=== PATIENT | female | born 1960 | race Caucasian/White ===

== ENCOUNTER 2019-11-18 08:17 | Outpatient (REF) | payer BC, SELFPAY ==
[2019-11-18 09:04] LABS: Basophils % 0.6 %; Eosinophils # 0.1 10^3/uL (0.0-0.8); Eosinophils % 1.9 %; Hemoglobin 13.2 g/dL (11.5-15.3); Lymphocytes # 1.7 10^3/uL (0.8-4.8); Lymphocytes % 23.9 %; Mean Corpuscular HGB Conc 31.4 g/dL (30.0-36.0); Mean Corpuscular Hemoglobin 28.8 pg (28.0-34.0); Mean Corpuscular Volume 91.5 fL (81-99); Mean Platelet Volume 11.1 fL (7.4-10.4); Monocytes # 0.4 10^3/uL (0.2-0.9); Monocytes % 5.6 %; Neutrophils # 4.8 10^3/uL (1.8-7.7); Neutrophils % 67.9 %; Nucleated Red Blood Cells % 0 %; Platelet Count 253 10^3/cmm (130-400); Red Blood Count 4.59 10^6/uL (4.1-5.3); Red Cell Distribution Width 12.6 % (12.1-15.1)
[2019-11-18 13:25] LABS: Alanine Aminotransferase 10 U/L (0-33); Albumin Level 4.2 g/dL (3.5-5.2); Alkaline Phosphatase 84 IU/L (35-105); Anion Gap 12.8 (5-19); Aspartate Amino Transferase 18 U/L (0-32); Blood Urea Nitrogen 17 mg/dL (6-20); Calcium 9.7 mg/dL (8.5-10.5); Carbon Dioxide 30 mmol/L (22-29); Chloride 102 mmol/L (98-107); Chol HDL Ratio 3.15 mg/dL (0.0-4.40); Cholesterol 195 mg/dL (0-200); Globulin 2.8 g/dL (1.3-4.6); Glomerular Filtration Rate 85.9 mL/min (90-130); Glucose 100 mg/dL (65-115); HDL Cholesterol 62 mg/dL (60-100); LDL Cholesterol Calculated 108 mg/dL (50-129); LDL HDL Ratio 1.74 RATIO (0.00-3.22); Potassium 3.8 mmol/L (3.5-5.1); Sodium 141 mmol/L (136-145); Thyroid Stimulating Hormone 0.24 uIU/mL (0.27-4.20); Total Bilirubin 0.5 mg/dL (0.15-1.2); Triglycerides 125 mg/dL (0-150)
[2019-11-18 23:40] LABS: 25 Hydroxy Vitamin D 30 ng/mL (30-100)
[2019-11-19 02:38] LABS: Estmated Average Glucose 117; Hemoglobin A1C 5.7 % (4.0-6.0)
== END 2019-11-18 08:18 | disposition home or self-care (01) ==
LOC: LAB 08:17
PROVIDERS: Family Provider Nurse Practitioner; PCP Nurse Practitioner; Visit Provider Dermatology
DX: Z01.89 Encounter for other specified special examinations (principal)
CPT/HCPCS: 80053; 80061; 82306; 83036; 84443; 85025

== ENCOUNTER → 2020-04-09 08:47 | Outpatient (BNVA) | payer BC, SELFPAY | PROVIDERS: Family Provider Nurse Practitioner; PCP Nurse Practitioner; Visit Provider Nurse Practitioner | DX: I10 Essential (primary) hypertension (principal); F41.9 Anxiety disorder, unspecified; F32.9 Major depressive disorder, single episode, unspecified | CPT/HCPCS: 80053; 80061; 84443; 84484 ==

== ENCOUNTER → 2021-04-02 08:57 | Outpatient (BNVA) | payer SELFPAY | PROVIDERS: Family Provider Nurse Practitioner; PCP Nurse Practitioner; Visit Provider Dermatology | DX: Z01.89 Encounter for other specified special examinations (principal) ==

== ENCOUNTER 2021-06-10 09:10 | Outpatient (CLI) | payer OTHER, SELFPAY ==
--- NOTE | 2021-06-10 09:30 | USCV_ITS ---
Darrian Gretchen Age: 60 Gender: F : 1960 Exam Date: 06/10/2021 09:25 Ordering Phys: Regina Holley Technologist: AUGUST [place]am [place] [facility] [place]: OTHER SPECIFIED SYMPTOMS AND SIGNS Risk Factors: Previous Vascular Surgery: None Right Brachial BP: / Left Brachial BP: / Right Left Velocity (cm/s) Spectral Plaque Velocity (cm/s) Spectral Plaque Syst/Diast Broadening Syst/Diast Broadening 78.80/ 28.10 Prox CCA 84.90 / 30.10 67.50/ 26.30 Mid CCA 65.80 / 22.10 71.70/ 26.50 Distal CCA 85.40 / 35.00 71.70/ 32.00 Prox ICA 85.40 / 36.70 75.00/ 35.30 Mid ICA 110.40/ 47.30 180.10/63.10 Distal ICA 154.30/ 52.90 94.80 ECA 71.80 1.11 ICA/CCA 1.68 Antegrade Vertebral Antegrade 39.40/ 16.40 cm/s 91.70/ 32.40 cm/s Tri Subclavian Bi 61.10 91.50 FINDINGS Comparison: none available. No significant elevation of systolic or diastolic velocities. Minimal bilateral, carotid atherosclerosis with no elevation of velocity. Aantegrade vertebral arteries. CONCLUSIONS Bilateral ICA stenosis less than 50%. Dr. Denise Meade DO (Electronically Signed) Final Date: 10 June 2021 11:03 S
== END 2021-06-10 09:11 | disposition home or self-care (01) ==
PROVIDERS: PCP Nurse Practitioner; Visit Provider Nurse Practitioner
DX: R09.89 Other specified symptoms and signs involving the circulatory and respiratory systems (principal); I65.23 Occlusion and stenosis of bilateral carotid arteries
CPT/HCPCS: 93880

== ENCOUNTER 2021-06-11 13:41 | Outpatient (CLI) | payer OTHER, SELFPAY ==
--- NOTE | 2021-06-11 14:00 | MM_ITS ---
WS: [id number] BILATERAL SCREENING DIGITAL MAMMOGRAM WITH CAD HISTORY: Z12.39 - Encounter for other screening for malignant neoplasm. COMPARISON: 07/29/2018 and 2015 Bilateral CC and MLO views submitted. Computer aided detection analyzed. Breast composition: The breasts are heterogeneously dense, which may obscure small masses. No suspici ous masses, microcalcifications or architectural distortion. MM/[place] [id number] IMPRESSION: BI-RADS: 1-Negative FOLLOW UP: 1 Year Follow-up
== END 2021-06-11 13:42 | disposition home or self-care (01) ==
LOC: RADSHAW 13:43
PROVIDERS: PCP Nurse Practitioner; Visit Provider Nurse Practitioner
DX: Z12.31 Encounter for screening mammogram for malignant neoplasm of breast (principal)
CPT/HCPCS: 77067

== ENCOUNTER → 2021-07-02 09:32 | Outpatient (BNVA) | payer SELFPAY | PROVIDERS: PCP Nurse Practitioner; Visit Provider Nurse Practitioner | DX: E03.8 Other specified hypothyroidism (principal) ==

== ENCOUNTER → 2022-03-25 08:32 | Outpatient (BNVA) | payer SELFPAY | PROVIDERS: PCP Nurse Practitioner; Referring Provider Nurse Practitioner; Visit Provider Dermatology | DX: Z01.89 Encounter for other specified special examinations (principal); Z71.9 Counseling, unspecified ==

== ENCOUNTER 2022-06-18 08:15 | Outpatient (CLI) | payer OTHER, SELFPAY ==
--- NOTE | 2022-06-18 08:28 | MM_ITS ---
WS: [id number] Bilateral screening 3D tomosynthesis digital mammogram, 06/18/2022 Clinical Data: SCREENING Comparison: 06/11/2021, 07/29/2018, 09/12/2016, 05/15/2015, 05/02/2015, 12/01/2010, 07/11/2029, 06/22/2027, . Findings: The breast parenchymal pattern shows heterogeneous density. No spiculated masses or clustered calcifi cations are seen. There are no secondary signs of carcinoma. There are mole markers on both breasts. MM/[place] [id number] Impression: 1. Negative bilateral mammogram unchanged. 2. Recommend annual screening mammograms. BIRADS: 1-Negative FOLLOW UP: 1 Year Follow-up The CAD cashier or checker stock clerk was used.
== END 2022-06-18 08:16 | disposition home or self-care (01) ==
LOC: RAD 08:15
PROVIDERS: PCP Nurse Practitioner; Visit Provider Nurse Practitioner
DX: Z12.31 Encounter for screening mammogram for malignant neoplasm of breast (principal)
CPT/HCPCS: 77063; 77067

== ENCOUNTER → 2023-03-24 09:44 | Outpatient (BNVA) | payer SELFPAY | PROVIDERS: PCP Nurse Practitioner; Visit Provider Dermatology | DX: Z01.89 Encounter for other specified special examinations (principal) ==

== ENCOUNTER 2023-06-19 11:46 | Outpatient (CLI) | payer OTHER, SELFPAY ==
--- NOTE | 2023-06-19 11:59 | MM_ITS ---
WS: [id number] BILATERAL 3D TOMOSYNTHESIS DIGITAL SCREENING MAMMOGRAPHY WITH CAD CLINICAL INFORMATION: Z12.31 - Encounter for screening mammogram for malignant ... HISTORY: Screening mammogram. No current complaints. COMPARISON: 2021 TECHNIQUE: Bilateral CC and MLO views. FINDINGS: The breasts are composed of heterogeneous fibroglandular density tissue, which can limit the detectio n of small underlying mass lesions. No suspicious mass, asymmetry, calcifications, or architectural d istortion. No evidence of malignancy. Incidental punctate calcifications. IMPRESSION: MM/[place] [id number] BI-RADS: 2-Benign FOLLOW UP: 1 Year Follow-up Recommend return to annual screening mammography.
== END 2023-06-19 11:47 | disposition home or self-care (01) ==
LOC: RAD 11:47
PROVIDERS: PCP Nurse Practitioner; Visit Provider Nurse Practitioner
DX: Z12.31 Encounter for screening mammogram for malignant neoplasm of breast (principal)
CPT/HCPCS: 77063; 77067

== ENCOUNTER 2023-07-01 12:15 | Outpatient (CLI) | payer OTHER, SELFPAY | END 2023-07-01 12:16 | disposition home or self-care (01) | LOC: SLEEP 07-02 09:38 | PROVIDERS: PCP Nurse Practitioner; Visit Provider Nurse Practitioner | DX: G47.10 Hypersomnia, unspecified (principal); R06.83 Snoring | CPT/HCPCS: G0399 ==

== ENCOUNTER → 2023-08-26 11:48 | Outpatient (BNVA) | payer OTHER, SELFPAY | PROVIDERS: PCP Nurse Practitioner; Visit Provider Nurse Practitioner | DX: E03.8 Other specified hypothyroidism (principal) | CPT/HCPCS: 84439; 84443; 84481 ==

== ENCOUNTER → 2023-09-22 08:06 | Outpatient (BNVA) | payer SELFPAY | PROVIDERS: PCP Nurse Practitioner; Visit Provider Dermatology | DX: I10 Essential (primary) hypertension (principal); E03.8 Other specified hypothyroidism; F41.9 Anxiety disorder, unspecified; F32.9 Major depressive disorder, single episode, unspecified; Z01.89 Encounter for other specified special examinations | CPT/HCPCS: 85025 ==

== ENCOUNTER 2024-04-27 08:00 | Outpatient (CLI) | payer OTHER, SELFPAY ==
--- NOTE | 2024-04-27 08:00 | USCV_ITS ---
Darrian Gretchen Age: 63 Gender: F : 1960 Exam Date: 04/27/2024 08:17 Ordering Phys: Regina Holley Technologist: Exam Location[place] [facility] [place] Indication: rt distal ica stenosis Risk Factors: Previous Vascular Surgery: Right Brachial BP: / Left Brachial BP: / Right Left Velocity (cm/s) Spectral Plaque Velocity (cm/s) Spectral Plaque Syst/Diast Broadening Syst/Diast Broadening 71.00/ 25.00 Prox CCA 82.00 / 31.00 76.00/ 34.00 Mid CCA 74.00 / 29.00 74.00/ 32.00 Distal CCA 60.00 / 22.00 52.00/ 21.00 Prox ICA 57.00 / 25.00 64.00/ 31.00 Mod Mid ICA 98.00 / 47.00 233.00/73.00 PST Hetro Distal ICA 105.00/ 40.00 120.00 ECA 60.00 3.10 ICA/CCA 1.70 Antegrade Vertebral Antegrade 33.00/ 13.00 cm/s 55.00/ 20.00 cm/s Bi Subclavian Bi 129.0 101.0 0 0 FINDINGS significant stenosis distal rt ica increased from previous exam CONCLUSIONS Right DISTAL ICA stenosis approximately 70% new from previous.. Recommend CTA head and neck Right ICA stenosis <50%. Moderate atheromatous plaque right carotid bulb/ICA. Left ICA stenosis <50%. Moderate atheromatous plaque left carotid bulb/ICA. Mild atheromatous plaque left carotid bulb/ICA. Normal antegrade Doppler flow noted in the right vertebral artery. Normal antegrade Doppler flow noted in the left vertebral artery. David Coreas MD (Electronically Signed) Final Date: 27 April 2024 15:46 Amended: 27 April 2024 15:48 C
== END 2024-04-27 08:01 | disposition home or self-care (01) ==
PROVIDERS: PCP Nurse Practitioner; Visit Provider Nurse Practitioner
DX: R09.89 Other specified symptoms and signs involving the circulatory and respiratory systems (principal); I65.21 Occlusion and stenosis of right carotid artery
CPT/HCPCS: 93880

== ENCOUNTER 2024-05-23 11:46 | Outpatient (CLI) | payer OTHER, SELFPAY ==
--- NOTE | 2024-05-23 12:00 | CT_ITS ---
WS: [id number] CT ANGIOGRAM CEREBRAL AND CAROTID ARTERIES HISTORY: R93.89 - Abnormal findings on diagnostic imaging of other... TECHNIQUE: CT angiogram is performed of the carotid and cerebral arteries. During arterial injection imaging is obtained from the skull vertex to the aortic arch in 1.25 mm imaging. Coronal and sagittal reformats are submitted. Additional multi planar reformats of the carotid and cerebral arteries are submitted, MIP imaging also reviewed. NASCET criteria utilized. [facility] CT [facility] at least one of these dose optimization techniques: automated exposure control; mA and/or kV adjust ment per patient size (includes targeted exams where dose is matched to clinical indication); or iter ative reconstruction. CONTRAST: Omnipaque 350; 100 mL IV. DLP: 1205.04 mGy.cm COMPARISON: Carotid ultrasound 04/27/[address]: No acute hemorrhage. Mild bifrontal lobe atrophy has progressed since 2008. Mild small vessel ischemic disease. No infarct or hemorrhage. Air noted within the. RIGHT globe. Carotid Angiogram: Right carotid: Common carotid artery: Arises normally from the innominate artery. No significant plaque or stenosis. Internal carotid artery: No significant stenosis in the proximal ICA. In the distal cervical ICA ther e is a sharp bend within the carotid artery resulting in stenosis estimated near 60 to 70%. This shyla esponds to the finding also seen on the recent carotid ultrasound. External carotid artery: Patent. Left carotid: Common carotid artery: Arises normally from the aorta. No significant plaque or stenosis. Internal carotid artery: No plaque or stenosis. External carotid artery: Patent. Right vertebral artery: Patent and slightly smaller caliber than the LEFT. Left vertebral artery: Dominant. Subclavian arteries: No stenosis or significant abnormality. Upper thorax: Biapical pulmonary fibrosis. Thyroid gland: Small caliber. Thyroid is very difficult to visualize. Osseous structures: Degenerative disc disease at C5-6 and C6-7. CEREBRAL ANGIOGRAM: Intracranial vertebral arteries: Patent, LEFT is dominant. Basilar artery: No significant stenosis or occlusion. No aneurysm. Intracranial Internal carotid arteries: Demonstrates no significant stenosis or plaque. Middle cerebral arteries: Normal. Anterior cerebral arteries and ACOM: Normal. Posterior cerebral arteries and PCOM's: Persistent circulation on the RIGHT. Small caliber but patent LEFT posterior communicating artery. Dural venous sinuses are normally enhancing. Mastoid air cells: Normal. Paranasal sinuses: Normal. Calvarium: Normal. CT/CT angio headneck* [id number] IMPRESSION: 1. There is a sharp band in the distal RIGHT cervical ICA and may be a small w eb resulting in stenosis of 60 to 70%. Very minimal calcified plaque. 2. No occlusions or aneurysms in the [place]. 3. Air in the RIGHT globe. This is probably not an acute finding but is new si nce 2009.
[2024-05-23 12:50] LABS: Blood Urea Nitrogen 18 mg/dL (8-23); Glomerular Filtration Rate 72.7 mL/min (90-130)
[2024-05-23] MEDS: iohexol 350 mg/mL 500 mL Btl (per mL) IV (13:13)
== END 2024-05-23 11:47 | disposition home or self-care (01) ==
LOC: RAD 11:47
PROVIDERS: PCP Nurse Practitioner; Visit Provider Nurse Practitioner
DX: R93.89 Abnormal findings on diagnostic imaging of other specified body structures (principal); I65.21 Occlusion and stenosis of right carotid artery; J84.10 Pulmonary fibrosis, unspecified; M50.322 Other cervical disc degeneration at C5-C6 level; M50.223 Other cervical disc displacement at C6-C7 level
CPT/HCPCS: 70496; 70498; 82565; 84520; Q9967

== ENCOUNTER 2024-06-19 16:17 | Emergency (ER) | payer OTHER, SELFPAY ==
[2024-06-19 16:18] VITALS: BP 150/83; PULSE 90; RESP 16; O2SAT 96; BMI 27.7
--- NOTE | 2024-06-19 16:25 | XRR_ITS ---
PROCEDURE INFORMATION: Exam: XR Chest Exam date and time: 06/19/2024 4:36 PM Age: 63 years old Clinical indication: Patient HX: Cough x 3 days TECHNIQUE: Imaging protocol: Radiologic exam of the chest. Views: 1 view. COMPARISON: CT angio headneck* [id number] 05/23/2024 12:58 PM FINDINGS: Lungs: Unremarkable. No consolidation. Pleural spaces: Unremarkable. No pleural effusion. No pneumothorax. Heart/Mediastinum: Unremarkable. No cardiomegaly. Bones/joints: Unremarkable. XR/XR chest 1V portable [id number] IMPRESSION: No acute findings.
[2024-06-19] MEDS: guaiFENesin-codeine UDC 10 mL PO ×3 (16:55→18:55)
[2024-06-19 17:00] VITALS: BP 138/85; PULSE 79; RESP 17; O2SAT 97
--- NOTE | 2024-06-19 17:10 | ED_ITS ---
HPI - URI/Sore Throat General: Chief Complaint: Upper Respiratory Infection Stated Complaint: cant stop coughing Time Seen by Provider: 06/19/24 16:24 History of Present Illness: 63-year-old female who presents the [facility] room with a cough. She says she has been having coughing fits that are so bad it makes her throw up. This started about at which point she had gone to an urgent care and was started on a dexamethasone taper. Cough is continued to worsen. She says she has been through 2 bags cough drops with no improvement. Related Data Home Medications Medication Instructions Recorded Confirmed aspirin 81 mg tablet,delayed 81 mg PO DAILY 04/16/23 03/24/24 release (Adult Low Dose Aspirin) Previous Rx's Medication Instructions Recorded estradiol 0.01% (0.1 mg/gram) 1 gm vaginal .TID WEEK #42.5 grams 11/08/19 vaginal cream albuterol sulfate 90 mcg/actuation 2 inh inhalation QID PRN shortness 01/01/22 aerosol inhaler (Proventil HFA) of breath or wheezing #8.5 grams fluticasone propionate 110 1 puff inhalation Q12H #12 grams 01/01/22 mcg/actuation HFA aerosol inhaler (Flovent HFA) doxepin 50 mg capsule 50 mg PO BID PRN anxiety #180 caps 03/24/24 thyroid (pork) 90 mg tablet 90 mg PO DAILY #90 tabs 03/24/24 (Willis Thyroid) venlafaxine 75 mg capsule,extended 75 mg PO QDAY #90 caps 03/24/24 release 24 hr lisinopril 5 mg tablet 5 mg PO DAILY #90 tabs 05/24/24 rosuvastatin 20 mg tablet 20 mg PO DAILY #90 tabs 05/24/24 albuterol sulfate 90 mcg/actuation 2 inh inhalation Q4H PRN shortness 06/19/24 aerosol inhaler of breath or wheezing #6.7 grams azithromycin 250 mg tablet See Rx Instructions PO .COMPLEX #6 06/19/24 (Zithromax Z-Rocky) tabs benzonatate 200 mg capsule 200 mg PO TID PRN cough #30 caps 06/19/24 codeine 10 mg-guaifenesin 100 mg/5 5 ml PO Q6H PRN cough #120 mL 09/08/24 mL oral liquid Allergies Allergy/AdvReac Type Severity Reaction Status Date / Time No Known Allergies Allergy Verified 03/24/24 16:12 Review of Systems Narrative: Constitutional symptoms: Negative except as documented in HPI. Skin symptoms: Negative except as documented in HPI. Eye symptoms: Negative except as documented in HPI. ENMT symptoms: Negative except as documented in HPI. Respiratory symptoms: Negative except as documented in HPI. Cardiovascular symptoms: Negative except as documented in HPI. Gastrointestinal symptoms: Negative except as documented in HPI. Genitourinary symptoms: Negative except as documented in HPI. Musculoskeletal symptoms: Negative except as documented in HPI. Neurologic symptoms: Negative except as documented in HPI. Psychiatric symptoms: Negative except as documented in HPI. Endocrine symptoms: Negative except as documented in HPI. PFSH ED PFSH: Medical History Adult onset hypothyroidism Anxiety and depression Mixed hyperlipidemia Atrophic vaginitis Surgical History History of colonoscopy Family History Grandfather Cancer Prostate Family/Other Heart disease Father, Grandmother, Uncle Hyperlipidemia Social History Smoking and tobacco/nicotine status: never used tobacco/nicotine Second hand smoke exposure: No Alcohol intake: never Substance/Drug Use: never Adopted: No Caregiver/support person: No Lives independently: Yes Household members: spouse Housing: House Marital status: Number of children: 2 service: No Current occupational status: unemployed Pets and animals: No Do you think of yourself as: Straight/Heterosexual Current gender identity: Female Physical Exam Narrative: EXAM NARRATIVE: General: Alert, no acute distress. Skin: Warm, dry. Head: Normocephalic, atraumatic. Neck: Supple, trachea midline. Eye: Extraocular movements are intact. Ears, nose, mouth and throat: mucosa moist. Cardiovascular: Regular, Normal peripheral perfusion. Respiratory: Lungs are clear to auscultation, respirations are non-labored, breath sounds are equal, Symmetrical chest wall expansion. Frequent hoarse cough Gastrointestinal: Soft, Nontender, Non distended Musculoskeletal: Normal ROM, no deformity. Neurological: Alert and oriented, No focal neurological deficit observed. Psychiatric: Cooperative, appropriate mood & affect. Course Vital Signs: Vital signs: Vital Signs Pulse Rate 79 06/19/24 17:00 Respiratory Rate 17 06/19/24 17:00 Blood Pressure 138/85 06/19/24 17:00 Pulse Oximetry 97 06/19/24 17:00 Oxygen Delivery Me thod Room Air 06/19/24 17:00 MDM - URI/Sore Throat Medical Decision Making Medical decision making: Differential diagnosis including but not limited to and based on the above HPI, review of systems and physical exam: Likely a viral upper respiratory infection/bronchitis. COVID was ordered and a chest x-ray. Orders placed to evaluate differential diagnosis based on the above differential, HPI and physical exam Chest x-ray: No acute process. No infiltrate. No pneumothorax. This was reviewed and interpreted by myself the ER physician. Lab Review: Laboratory results were reviewed and interpreted by myself the emergency room physician. COVID flu and RSV are negative. I reviewed the patient's medical record. Reexamination: Patient remained stable. No increased work of breathing. No altered mental status. No focal motor deficits. Cough has improved some with codeine. Assessment and plan: Upper respiratory infection Bronchitis ?IM Decadron and p.o. codeine. - Discharged home - Discussed findings and plan with patient. Answered any questions. - All laboratory values were reviewed and interpreted personally by myself, the ER physician - All imaging was reviewed and interpreted personally by myself, the ER physician. - Evaluation and treatment of this problem were appropriate in the emergency setting Lab Data Radiology Impressions Chest X-Ray 06/19/24 16:25 IMPRESSION: No acute findings. Laboratory Results Coronavirus (PCR) Negative (Negative) 06/19/24 17:00 Influenza A (PCR) Negative (Negative) 06/19/24 17:00 Influenza Type B (PCR) Negative (Negative) 06/19/24 17:00 RSV (PCR) Negative (Negative) 06/19/24 17:00 All radiology interpretation(s) finalized by discharge Discharge Plan Discharge Patient Disposition: Home Clinical Impression: Upper respiratory infection, Bronchitis Condition: Stable Prescriptions: New codeine-guaifenesin 10-100 mg/5 mL liquid 5 ml PO Q6H PRN (Reason: cough) Qty: 120 0RF Zithromax Z-Rocky 250 mg tablet See Rx Instructions .ROUTE .COMPLEX Qty: 6 0RF Rx Instructions: For 250 mg dose pack: take 500 mg today (day 1), then 250 mg for 4 days (days 2-5) benzonatate 200 mg capsule 200 mg PO TID PRN (Reason: cough) Qty: 30 0RF albuterol sulfate 90 mcg/actuation HFA aerosol inhaler 2 inh inhalation Q4H PRN (Reason: shortness of breath or wheezing) Qty: 6.7 0RF Rx Instructions: Please provide patient with a spacer No Action estradiol 0.01 % (0.1 mg/gram) cream 1 gm VAGINAL .TID WEEK Qty: 42.5 5RF Rx Instructions: 340B aspirin [Adult Low Dose Aspirin] 81 mg tablet,delayed release (DR/EC) 81 mg PO DAILY thyroid (pork) [Willis Thyroid] 90 mg tablet 90 mg PO DAILY Qty: 90 1RF venlafaxine 75 mg capsule,extended release 24hr 75 mg PO QDAY Qty: 90 1RF doxepin 50 mg capsule 50 mg PO BID PRN (Reason: anxiety) Qty: 180 1RF Flovent HFA 110 mcg/actuation HFA aerosol inhaler 1 puff inhalation Q12H Qty: 12 0RF albuterol sulfate [Proventil HFA] 90 mcg/actuation HFA aerosol inhaler 2 inh inhalation QID PRN (Reason: shortness of breath or wheezing) Qty: 8.5 0RF rosuvastatin 20 mg tablet 20 mg PO DAILY Qty: 90 1RF lisinopril 5 mg tablet 5 mg PO DAILY Qty: 90 0RF Discharge Orders: Discharge ED (Routine); Ordered 06/19/24 Ordered By: Rocío Rucker Referrals: Regina Holley, [facility] [Primary Care Provider] - Discharge Diet: Usual diet Discharge Activity: Increase activity as tolerated Patient Instructions: Acute Bronchitis (ED) Activity Restrictions/Additional Instructions: Thank you for choosing [facility] for your healthcare needs today. Please realize this is an emergency room and that we are providing you with a medical screening exam and this may not be complete and all inclusive of all the testing and or work up that you may need to determine your ailment or severity of your illness. You have been screened and evaluated and felt safe for discharge. Health conditions do change or evolve sometimes and as such it is important that you follow up with your Primary Doctor to be re checked, 3-5 days is a general good time frame for follow up. You are always welcome to return to the ED for re assessment if your symptoms are worsening or you have new concerns Coding Level of Care Code ED Servicenow Administrator Developer for Yari Soni
[2024-06-19 17:46] LABS: Covid PCR NEGATIVE (Negative); Influenza A NEGATIVE (Negative); Influenza B NEGATIVE (Negative); Respiratory Syncytial Virus Ce NEGATIVE (Negative)
[2024-06-19] MEDS: dexamethasone 10 mg/mL INJ IM (17:49)
[2024-06-19 18:55] VITALS: BP 166/93; PULSE 70; RESP 16; O2SAT 98
== END 2024-06-19 18:55 | disposition home or self-care (01) ==
PROVIDERS: Emergency Provider Emergency Medicine; PCP Nurse Practitioner
DX: J06.9 Acute upper respiratory infection, unspecified (principal); J40 Bronchitis, not specified as acute or chronic; Z79.82 Long term (current) use of aspirin; E78.2 Mixed hyperlipidemia
CPT/HCPCS: 0241U; 71045; 96372; 99284; J1100

== ENCOUNTER 2024-06-21 08:55 | Outpatient (CLI) | payer SELFPAY ==
[2024-06-21 10:26] LABS: 25 Hydroxy Vitamin D 51 ng/mL (30-100); Thyroid Stimulating Hormone 0.03 uIU/mL (0.27-4.20)
== END 2024-06-21 08:56 | disposition home or self-care (01) ==
LOC: LAB 08:57
PROVIDERS: PCP Nurse Practitioner; Visit Provider Dermatology
DX: Z01.89 Encounter for other specified special examinations (principal)

== ENCOUNTER 2024-09-20 07:44 | Outpatient (CLI) | payer SELFPAY ==
[2024-09-20 09:00] LABS: Estmated Average Glucose 103; Hemoglobin A1C 5.2 % (4.0-6.0)
[2024-09-20 09:23] LABS: 25 Hydroxy Vitamin D 39 ng/mL (30-100); Alanine Aminotransferase 14 U/L (0-33); Alkaline Phosphatase 94 U/L (35-105); Aspartate Amino Transferase 20 U/L (0-32); Blood Urea Nitrogen 18 mg/dL (8-23); Calcium 9.2 mg/dL (8.5-10.5); Carbon Dioxide 26 mmol/L (22-29); Chloride 106 mmol/L (98-107); Chol HDL Ratio 2.69 mg/dL (0.0-4.40); Cholesterol 164 mg/dL (0-200); Globulin 2.5 g/dL (1.3-4.6); Glomerular Filtration Rate 84.8 mL/min (90-130); Glucose 102 mg/dL (65-115); HDL Cholesterol 61 mg/dL (60-100); LDL Cholesterol Calculated 86 mg/dL (50-129); LDL HDL Ratio 1.41 RATIO (0.00-3.22); Osmolality Calculated 294 mOsm/kg (285-295); Sodium 141 mmol/L (136-145); Thyroid Stimulating Hormone 0.65 uIU/mL (0.27-4.20); Total Bilirubin 0.2 mg/dL (0.15-1.2); Total Protein 6.5 g/dL (6.6-8.7); Triglycerides 84 mg/dL (0-150)
[2024-09-20 14:32] LABS: HF Add Manual Diff No
[2024-09-20 14:39] LABS: Basophils # 0.1 10^3/uL (0.0-0.1); Basophils % 0.7 %; Eosinophils # 0.2 10^3/uL (0.0-0.8); Eosinophils % 2.4 %; Hematocrit 35.9 % (36-47); Lymphocytes # 1.9 10^3/uL (0.8-4.8); Lymphocytes % 26.2 %; Mean Corpuscular HGB Conc 31.8 g/dL (30-55); Mean Corpuscular Hemoglobin 29.1 pg (27-33); Mean Corpuscular Volume 91.6 fl (85-98); Mean Platelet Volume 10.1 fL (7.4-10.4); Monocytes # 0.5 10^3/uL (0.2-0.9); Monocytes % 6.4 %; Neutrophils # 4.59 10^3/uL (1.8-7.7); Neutrophils % 64.2 %; Nucleated Red Blood Cells % 0 %; Platelet Count 220 10^3/cmm (157-399); Red Blood Count 3.92 10^6/uL (3.85-5.65); White Blood Count 7.15 10^3/uL (3.29-11.43)
== END 2024-09-20 07:45 | disposition home or self-care (01) ==
LOC: LAB 07:46
PROVIDERS: PCP Nurse Practitioner; Visit Provider Dermatology
DX: Z13.9 Encounter for screening, unspecified (principal)
CPT/HCPCS: 36415

== ENCOUNTER → 2024-09-22 16:21 | Outpatient (BNVA) | payer OTHER, SELFPAY | PROVIDERS: PCP Nurse Practitioner; Visit Provider Nurse Practitioner | DX: I10 Essential (primary) hypertension (principal) | CPT/HCPCS: 81000 ==

== ENCOUNTER 2024-09-23 07:30 | Outpatient (CLI) | payer OTHER, SELFPAY ==
--- NOTE | 2024-09-23 | MM_ITS ---
WS: [id number] SCREENING DIGITAL BREAST TOMOSYNTHESIS MAMMOGRAM WITH CAD HISTORY: ANNUAL SCREENING COMPARISON: 06/19/2023, 06/18/2022, 06/11/2021 Bilateral CC and MLO with tomosynthesis and synthetic mammography submitted. Computer aided detection analyzed. Breast composition: The breasts are heterogeneously dense, which may obscure small masses. New 5 x 3 x 3 mm mass is well-circumscribed in the medial posterior LEFT breast. This mass has not been identif ied on prior studies. This may be a benign lymph node. There are a few additional scattered calcifica tions in each breast. MM/MM scr BI tomosynthesis [id number] IMPRESSION: BI-RADS: 0 - Incomplete: Need additional imaging evaluation FOLLOW UP: Need Additional Imaging Recommendation: LEFT breast ultrasound focused to the medial posterior LEFT nathan ast. Ultrasound between 6 and 9:00.
== END 2024-09-23 07:31 | disposition home or self-care (01) ==
PROVIDERS: PCP Nurse Practitioner; Visit Provider Nurse Practitioner
DX: Z12.31 Encounter for screening mammogram for malignant neoplasm of breast (principal); R92.333 Mammographic heterogeneous density, bilateral breasts; N63.24 Unspecified lump in the left breast, lower inner quadrant; R92.1 Mammographic calcification found on diagnostic imaging of breast
CPT/HCPCS: 77063; 77067

== ENCOUNTER 2024-10-03 07:52 | Outpatient (CLI) | payer OTHER, SELFPAY ==
--- NOTE | 2024-10-03 08:00 | US_ITS ---
WS: [id number] ULTRASOUND LEFT BREAST, limited HISTORY: LEFT breast mass at 8:00. Noted on screening mammogram COMPARISON: 09/23/2024 TECHNIQUE: 2-D and Doppler. Mass seen on screening mammogram corresponds to a benign cyst at 8:00, 4 cm from the nipple. Mass nancy sures 0.3 x 0.3 x 0.5 cm. US/US breast LT limited* [id number] IMPRESSION: BI-RADS: 2- Benign FOLLOW-UP: 1 Year Follow-up Return to annual screening mammography.
== END 2024-10-03 07:53 | disposition home or self-care (01) ==
LOC: RAD 07:52
PROVIDERS: PCP Nurse Practitioner; Visit Provider Nurse Practitioner
DX: N60.02 Solitary cyst of left breast (principal); R92.8 Other abnormal and inconclusive findings on diagnostic imaging of breast
CPT/HCPCS: 76642

== ENCOUNTER → 2025-09-21 08:09 | Outpatient (BNVA) | payer SELFPAY | PROVIDERS: PCP Nurse Practitioner; Visit Provider Dermatology | DX: I10 Essential (primary) hypertension (principal) | CPT/HCPCS: 80053; 80061; 83036; 84443; 85025 ==

== ENCOUNTER 2025-10-06 10:16 | Outpatient (CLI) | payer OTHER, SELFPAY ==
--- NOTE | 2025-10-06 10:20 | MM_ITS ---
WS: [id number] BILATERAL 3D TOMOSYNTHESIS DIGITAL SCREENING MAMMOGRAPHY WITH CAD CLINICAL INFORMATION: Z12.31 - Encounter for screening mammogram for malignant ... HISTORY: Screening mammogram. No current complaints. COMPARISON: 2023 TECHNIQUE: Bilateral CC and MLO views. FINDINGS: The breasts are composed of heterogeneous fibroglandular density tissue, which can limit the detection of small underlying mass lesions. No suspicious mass, asymmetry, calcifications, or architectural distortion. No evidence of malignancy. MM/MM [facility] tomosynthesis [id number] IMPRESSION: DENSITY: The breasts are heterogeneously dense, which may obscure small masses. BI-RADS: 1 - Negative FOLLOW UP: 1 Year Follow-up Recommend return to annual screening mammography.
== END 2025-10-06 10:17 | disposition home or self-care (01) ==
PROVIDERS: PCP Nurse Practitioner; Visit Provider Nurse Practitioner
DX: Z12.31 Encounter for screening mammogram for malignant neoplasm of breast (principal); R92.333 Mammographic heterogeneous density, bilateral breasts; R92.323 Mammographic fibroglandular density, bilateral breasts
CPT/HCPCS: 77063; 77067